=== PATIENT | female | born 1930 | race Caucasian/White ===

== ENCOUNTER 2016-07-17 20:40 | Inpatient (IN) ==
--- NOTE | 2016-07-17 20:50 | Emergency Department Report ---
Cardiac General HPI - General Stated Complaint: irregular heart beat, diff breathing Time Seen by Provider: 07/17/16 20:45 Source: patient, family Limitations: no limitations - History of Present Illness HPI narrative: Patient has had 4 days of worsening dyspnea, especially with exertion. Up to this point over the weekend the patient has refused to allow her family to call EMS or bring her to the hospital. Patient has never had anything like this before, does have coronary disease but has no stent or CABG in the past. Patient has no history of CHF or pulmonary disease. Symptoms began after the patient had taken a car trip to [place] to sell her home. Over the course of the weekend the patient initially refused medical treatment, but on their way back to [place], and her local home, patient relented and allowed her family to bring her back to the ER tonight. Occurred At: home Onset (ago): day(s) Severity: severe Prior Chest Pain/Cardiac Workup: cardiac cath Nitro Today: 0.4 mg x 2 - Related Data Home Medications Medication Instructions Recorded Confirmed Amitriptyline HCl 1 tab PO HS #30 tab 11/30/15 Aspirin [Aspir 81] 1 tab PO DAILY #30 tab 11/30/15 Calcium Carbonate [Tums] 1 tab PO CHEW PRN #0 11/30/15 Cetirizine HCl [Zyrtec] 1 cap PO HS #0 cap 11/30/15 Levothyroxine Sodium [Synthroid] 1 tab PO ACB #0 tab 11/30/15 Lysine 500 mg PO BID #0 tab 11/30/15 Melatonin 5 mg PO HS #30 tab 11/30/15 Metoprolol Succinate 50 mg PO HS #0 tab 11/30/15 Naproxen Sodium [Aleve] 220 mg PO PRN #0 cap 11/30/15 Ramipril 10 mg PO BID #0 cap 11/30/15 VITAMIN C 1 tab PO PRN #0 11/30/15 Previous Rx's Medication Instructions Recorded Acidoph/L.bulg/Bif.b/S.thermop 2 cap PO BIDWM 9 Days 12/01/15 [Bacid Caplet] Amiodarone [Pacerone] 200 mg PO DAILY 30 Days 12/01/15 Amiodarone [Pacerone] 400 mg PO TID 6 Days 12/01/15 Amoxicillin 500 mg PO BID 9 Days 12/01/15 Allergies Allergy/AdvReac Type Severity Reaction Status Date / Time fexofenadine Allergy Unknown Verified 07/17/16 21:07 loratadine Allergy Unknown Verified 07/17/16 21:07 montelukast Allergy Unknown Verified 07/17/16 21:07 pseudoephedrine Allergy Unknown Verified 07/17/16 21:07 Review of Systems All systems: reviewed and negative except as stated Cardiovascular: Reports: dyspnea on exertion (squeezing feeling in the chest) FORMERLY [facility], 1928–1983 Patient Stated Medical History Cataracts Yes Dental Problems Yes Hearing Loss Yes Cardiac Arrhythmia Yes Hypertension Yes Asthma Yes Gastroesophageal Reflux Yes Disease Hx Incontinence Yes Osteoarthritis Yes CAD Angina Hypertension Hypothyroidism Environmental allergies Surgical History: Cardiac catheter. Cholecystectomy. Hysterectomy/BSO Physical Exam - Limitations Limitations: no limitations - General General appearance: alert, other (patient appears in significant respiratory distress initially with guppy breathing. Patient placed on nasal cannula O2, and immediately had significant improvement) - Normal Exams: Head:: Normocephalic without trauma Eyes:: Pupils are PERRLA w/ EOMI, No scleral icterus, irritation, or foreign bodies noted ENMT:: No facial trauma, nasal exudates, pharyngeal erythema, or exudates are noted Neck:: Full range of motion, without adenopathy, JVD, bruits or thyromegaly Abdomen:: Bowel sounds positive, soft, non-tender, non-distended, no hepatosplenomegaly, masses or bruits noted Lymphatic:: No lymphadenopathy, or lymphedema noted Musculoskeletal:: No tenderness, or deformity noted, good range of motion, all extremities Integumentary:: No rashes, hives, or bruising noted, hair and nails, without abnormality Neurological:: Patient is alert, and oriented, cranial nerves, motor/sensory/ cerebellar, exams w/o gross deficits, to observation Psychiatric:: Patient exhibits, appropriate attention, emotion and affect - Chest Chest inspection: Present: normal inspection, symmetric chest wall rise - Respiratory Respiratory exam: Present: respiratory distress. Absent: normal lung sounds bilaterally (diminished breath sounds throughout, extended expiratory phase, minimal wheezes on end expiration only. Patient has positive inspiratory crackles in both bases), wheezes - Cardiovascular Cardiovascular exam: Absent: regular rate (irregularly irregular tachycardia initially, however on oxygen, as patient's respiratory status improved, patient' s heart rate stabilized to regular with occasional PVCs only.) Course Vital Signs Temperature 97.4 F 07/17/16 20:51 Pulse Rate 78 07/17/16 20:51 Respiratory Rate 34 H 07/17/16 20:51 Blood Pressure 172/102 H 07/17/16 20:51 Pulse Oximetry 84 L 07/17/16 20:51 Temperature 97.4 F 07/17/16 20:51 Pulse Rate 69 07/17/16 21:37 Respiratory Rate 28 H 07/17/16 21:37 Blood Pressure 148/74 H 07/17/16 21:37 Pulse Oximetry 96 07/17/16 21:37 Cardiac General - MDM Narrative Medical decision making narrative: Patient placed on 2 L nasal cannula to normalization of her hypoxemia Given nitroglycerin sublingual and 1 inch paste for hypertension and a probable urinary edema EKG shows her sinus rhythm with frequent PVCs and what appear to be premature junctional beats as well. No other signs of ischemia or infarction are seen CBC - n CMP - decreased sodium, minimal elevated liver enzymes, otherwise essentially normal D-dimer - Alcides elevation at 364 Chest x-ray -moderate diffuse interstitial infiltrates, left greater than right , with mild atelectasis After nitroglycerin and nitro paste, as well as small amount of supplemental oxygen, patient's blood pressure has normalized, her shortness of breath is significantly improved, and the patient's chest tightness is almost completely resolved. Patient discussed with Dr. Chambers - will admit to the hospital for full inpatient, for dyspnea with pulmonary edema, probable new congestive heart failure - Lab Data Result diagrams: 07/17/16 21:07 07/17/16 21:07 Lab Results 07/17/16 07/17/16 07/17/16 Range/Units 21:07 21:07 21:08 WBC 6.1 (4.5-11.0) T/MM3 RBC 4.11 (4.00-5.20) M/MM3 Hgb 11.9 L (12-16) GM/DL Hct 36.1 (36-46) % MCV 87.8 (80-100) UM3 MCH 29.0 (26-34) UUG MCHC 33.0 (31-37) GM/DL RDW Std Deviation 46.9 (36.9-50.2) FL Plt Count 347 (130-400) T/MM3 MPV 9.3 L (9.4-12.4) UM3 Immature Gran % (Auto) 0.2 (0.0-0.5) % Neut % (Auto) 64.9 (33-66) % Lymph % (Auto) 26.2 (23-45) % [place] % (Auto) 6.0 (0-9.0) % Eos % (Auto) 2.4 (0-4) % Baso % (Auto) 0.3 (0-2) % Neut # 4.0 (1.8-7.7) T/MM3 Lymph # 1.6 (1-4.8) T/MM3 [place] # 0.4 (0-0.8) T/MM3 Eos # 0.2 (0-0.5) T/MM3 Baso # 0.0 (0-0.2) T/MM3 Abs Immat Gran (auto) 0.01 (0.00-0.03) T/MM3 D-Dimer 364 H (0-230) NG/ML Turbidity < 20.0 (0-20) Sodium 129 L (134-144) MEQ/L Potassium 5.0 (3.6-5) MEQ/L Chloride 96 L (98-107) MEQ/L Carbon Dioxide 23 (22-30) MEQ/L Anion Gap 10 (5-15) MEQ/L BUN 29.0 H (7-17) MG/DL Creatinine 0.7 (0.7-1.2) MG/DL GFR Calculation 79 BUN/Creatinine Ratio 41 H (6-26) RATIO Glucose 127 H (65-110) MG/DL Calculated Osmolality 257 L (261-280) MOSM/KG Calcium 8.4 (8.4-10.2) MG/DL Total Bilirubin 0.50 (0.20-1.30) MG/DL Conjugated Bilirubin 0.00 (0.00-0.30) MG/DL Unconjugated Bilirubin 0.40 (0.00-11.10) MG/DL Icterus Index < 2.0 (0-7) AST 54 H (14-36) U/L ALT 71 H (9-52) U/L Alkaline Phosphatase 132 H (38-126) U/L Troponin I 0.023 (0-0.12) ng/ml Total Protein 6.6 (6.3-8.2) G/DL Albumin 3.9 (3.5-5.0) G/DL Globulin 2.7 (2.4-3.6) G/DL Albumin/Globulin Ratio 1.4 (1.1-2.2) RATIO Specimen Hemolysis < 15.0 (0-25) Critical Care Time Critical Care Time: Yes Total Critical Care Time: 35 Attestation: Patient required critical care for severe dyspnea, tachycardia with chest pain, and hypoxemia. Disposition Clinical Impression: Pulmonary edema, Dyspnea, Chest pain Disposition: 02 To [facility] [place] Care Condition: Improved Prescriptions: Continue Levothyroxine Sodium [Synthroid] 1 tab PO ACB #0 tab Ramipril 10 mg PO BID #0 cap Metoprolol Succinate 50 mg PO HS #0 tab Amitriptyline HCl 1 tab PO HS #30 tab Aspirin [Aspir 81] 1 tab PO DAILY #30 tab Cetirizine HCl [Zyrtec] 1 cap PO HS #0 cap Naproxen Sodium [Aleve] 220 mg PO PRN #0 cap Amoxicillin 500 mg PO BID 9 Days Amiodarone [Pacerone] 200 mg PO DAILY 30 Days Acidoph/L.bulg/Bif.b/S.thermop [Bacid Caplet] 2 cap PO BIDWM 9 Days Lysine 500 mg PO BID #0 tab Melatonin 5 mg PO HS #30 tab VITAMIN C 1 tab PO PRN #0 Calcium Carbonate [Tums] 1 tab PO CHEW PRN #0 Amiodarone [Pacerone] 400 mg PO TID 6 Days Referrals: Thom Guaman DO [Family Provider] - - Seen By: physician
[2016-07-17] MEDS ORDERED: SALINE FLUSH 10ml SYRINGE IVF PRN (20:54)
[2016-07-17] MEDS ORDERED: NITROGLYCERIN 2% OINTMENT 1gm PACKET TP ONE (20:58)
[2016-07-17] MEDS ORDERED: NITROGLYCERIN 0.4 MG SUBLINGUAL TABLET SL ONE (20:58)
[2016-07-17] MEDS ORDERED: NITROGLYCERIN 0.4 MG SUBLINGUAL TABLET SL PRN (21:53)
[2016-07-18] MEDS: FUROSEMIDE 40 MG/4 ML INJECTION IVP SCH ×4 (03:45→17:54)
[2016-07-18] MEDS: SALINE FLUSH 10ml SYRINGE IVF PRN ×2 (04:49→09:03)
--- NOTE | 2016-07-18 08:30 | XRay Report ---
Indication: dyspnea Procedure: XR chest 2V: Encounter: Initial Comparison: None Technique: PA and lateral radiographs of the chest were obtained. Findings: Lungs and airways: Low lung volumes. Left basilar atelectasis. Pulmonary vascular redistribution and indistinctness with increased interstitial markings. Pleura: Small left pleural effusion. No pneumothorax. Heart and mediastinum: Aortic atherosclerosis. Cardiomegaly. Osseous structures and soft tissues: No acute osseous abnormality is seen. Degenerative arthrosis of the shoulders. Degenerative disc disease of the thoracic spine. Impression: Cardiomegaly with vascular congestion and a small left pleural effusion. .
--- NOTE | 2016-07-18 11:16 | Cardiology History & Physical ---
History of Present Illness Chief complaint: SOA HPI: Any is a 86 year old female who is well known to Dr. Chambers's practice who has a history of CAD, paroxysmal atrial fibrillation, PVCs, non-rheumatic mitral valve insufficiency and HTN. She has had 4 days of worsening dyspnea, especially with exertion. Over the weekend the patient has refused to allow her family to call EMS or bring her to the hospital up to this point . She has never had anything like this before, does have coronary disease but has no stent or CABG in the past. She has no history of CHF or pulmonary disease. Symptoms began after she took a car trip to [place] to sell her home, on their way back to [place] she relented and allowed her family to bring her to the ED. She was admitted to Dr. Chambers for pulmonary edema and chest pain. She is examined this morning in her room on Medical. She reports frequent urination following diuretic early this morning. She states she is able to breathe easier and more deeply than she has the past week. She denies chest pain and states that is was tightness when she tried to breathe deeply. She reports chronic fatigue which she usually can recover from after rest, however the past week she has not been able to recover. She has a chronic dry unproductive cough. She denies recent illness, fever, chills, N/V/D. Denies syncope, dizziness or lightheadedness. Review of Systems - Constitutional Constitutional: Present: fatigue. Absent: chills, fever(s) - EENMT Eyes: Absent: change in vision Balance: Absent: vertigo Mouth/Throat: Absent: sore throat - Cardiovascular Cardiovascular: Present: chest pain (tightness), edema (pedal), heart murmur. Absent: syncope, dyspnea on exertion Vascular: Present: pedal edema - Respiratory Respiratory: Present: as per HPI, cough (dry, nonproductive), dyspnea, dyspnea on exertion - Gastrointestinal Gastrointestinal: Absent: diarrhea, nausea, vomiting - Genitourinary Genitourinary: Absent: dysuria - Integumentary/Breasts Integumentary: Absent: rash PFSH hypertension CAD (Cath 11/2015: EF 65%, LAD 50%, 1st Diag 30%) Thyroid disease Surgical History: Cardiac catheter. Cholecystectomy. Hysterectomy/BSO Family History: CAD- Brother, father, uncle and sister CVA- Mother [place] younger sister - Social History Smoking status: Never smoker Substance use type: does not use Alcohol intake frequency: does not drink Current occupational status: retired Medications Home Medications Medication Instructions Recorded Confirmed Type Amitriptyline HCl 1 tab PO HS #30 tab 11/30/15 07/18/16 History Cetirizine HCl [Zyrtec] 1 cap PO HS #0 cap 11/30/15 07/18/16 History Lysine 500 mg PO BID #0 tab 11/30/15 07/18/16 History Aspirin 325 mg PO DAILY 07/18/16 07/18/16 History Levothyroxine Tab [Synthroid] 112 mg PO DAILY 07/18/16 07/18/16 History Melatonin 10 mg Tablet 10 mg PO HS 07/18/16 07/18/16 History Allergies Allergy/AdvReac Type Severity Reaction Status Date / Time fexofenadine Allergy Unknown Verified 07/17/16 21:07 loratadine Allergy Unknown Verified 07/17/16 21:07 montelukast Allergy Unknown Verified 07/17/16 21:07 pseudoephedrine Allergy Unknown Verified 07/17/16 21:07 Exam Vital signs: Temp Pulse Resp BP Pulse Ox 97 F 40 L 12 142/70 H 95 07/18/16 07:05 07/18/16 07:05 07/18/16 07:05 07/18/16 07:05 07/18/16 07:05 - Constitutional no acute distress, thin, cooperative - Routine HEENT Exam ENT: Present: mucous membranes moist - Routine Neck Exam Absent: carotid bruit - Routine Respiratory Exam Present: diminished air movement (bilateral bases). Absent: wheezes - Routine Cardiovascular Exam Present: murmur (II/), irregular rhythm - Routine Abdominal Exam Present: soft, non tender - Routine Skin Exam Absent: rash - Routine Neurological Exam Present: alert, oriented X3 - Routine Psychiatric Exam Present: normal affect, normal thought process Results 07/21/16 04:37 07/21/16 04:37 Cardiac Enzymes 07/18/16 07/18/16 Range/Units 03:19 08:47 Troponin I 0.022 0.019 (0-0.12) ng/ml B-Natriuretic Peptide 8000 H (0-175) pg/mL Coagulation 07/18/16 Range/Units 03:19 B-Natriuretic Peptide 8000 H (0-175) pg/mL CBC 07/18/16 Range/Units 08:47 WBC 4.6 (4.5-11.0) T/MM3 RBC 4.03 (4.00-5.20) M/MM3 Hgb 11.6 L (12-16) GM/DL Hct 35.6 L (36-46) % Plt Count 333 (130-400) T/MM3 Comprehensive Metabolic Panel 07/18/16 Range/Units 08:47 Sodium 135 D (134-144) MEQ/L Potassium 3.8 D (3.6-5) MEQ/L Chloride 96 L (98-107) MEQ/L Carbon Dioxide 28 (22-30) MEQ/L BUN 24.0 H (7-17) MG/DL Creatinine 0.9 D (0.7-1.2) MG/DL Glucose 91 (65-110) MG/DL Calcium 8.5 (8.4-10.2) MG/DL Intake and Output 07/17/16 07/18/16 07/18/16 22:59 06:59 14:59 Intake Total 200 / 200 Output Total 300 / 300 Balance -100 / -100 Intake: Oral 200 / 200 Output: Urine 300 / 300 Other: # Voids 1 Weight 139 lb 5.314 oz Patient Weight 07/19/16 06:59 Weight 139 lb 5.314 oz - Imaging and Cardiology Echo: pending EKG results: report reviewed Imaging & Cardiology Narrative: Date of Exam: 07/17/16 Ordering Provider: Thom Toledo MD Type of Exam(s): XR chest 2V Reason for Exam(s): dyspnea Indication: dyspnea Procedure: XR chest 2V: Encounter: Initial Comparison: None Technique: PA and lateral radiographs of the chest were obtained. Findings: Lungs and airways: Low lung volumes. Left basilar atelectasis. Pulmonary vascular redistribution and indistinctness with increased interstitial markings. Pleura: Small left pleural effusion. No pneumothorax. Heart and mediastinum: Aortic atherosclerosis. Cardiomegaly. Osseous structures and soft tissues: No acute osseous abnormality is seen. Degenerative arthrosis of the shoulders. Degenerative disc disease of the thoracic spine. Impression: Cardiomegaly with vascular congestion and a small left pleural effusion. 07/18/16 12:12 EKG interpretations - Dysrhythmias Sinus rhythms and dysrhythmias: sinus rhythm Ventricular dysrhythmias: ventricular premature complexes (frequent) - Blocks, axis, hypertrophy, ST abn AV and intraventricular conduction: left bundle branch block (fixed/intermittent , complete/incomplete) Hospital Course Hospital course: 07/18/16 Last Echo 10/28 EF was 47%. Echo today EF 30%. BNP 8000. Diurese with Lasix 40mg IV Q8H and Potassium supplement 20meq TID w/ meals. Start Entresto 24mg/26mg by mouth BID Cardiomegaly with vascular congestion and a small left pleural effusion per chest xray. Cardiomyopathy: Start on Coreg 3.125mg by mouth BID. May need heart cath to determine if ischemic. MV insufficiency: NPO after midnight for LETICIA to look at Mitral valve, may need MV clipping. PVCs: Start Mexiletine [id number] po TID. Continue to monitor telemetry due to proarrhythmic effects of the medication. EKG in the morning. Recommendation After examining the patient I agree with the above assessment. I am involved in the formulation of the patient's plan of care. Assessment and Plan (1) Systolic CHF Start date: 07/17/16 Problem details: 07/18/16 Last Echo 10/28 EF was 47%. Echo today EF 30%. BNP 8000. Diurese with Lasix 40mg IV Q8H and Potassium supplement 20meq TID w/ meals. Start Entresto 24mg/26mg by mouth BID Status: Chronic Last Echo 10/28 EF was 47%. Echo today EF 30%. BNP 8000. Diurese with Lasix 40mg IV Q8H and Potassium supplement 20meq TID w/ meals. Start Entresto 24mg/26mg by mouth BID (2) Pulmonary edema Problem details: BNP 8000. Diurese with Lasix 40mg IV Q8H and Potassium supplement 20meq TID w/ meals. Status: Resolved Cardiomegaly with vascular congestion and a small left pleural effusion per chest xray. BNP 8000. Diurese with Lasix 40mg IV Q8H and Potassium supplement 20meq TID w/ meals. (3) Cardiomyopathy Problem details: Cardiomegaly with vascular congestion and a small left pleural effusion per chest xray. Cardiomyopathy: Start on Coreg 3.125mg by mouth BID. May need heart cath to determine if ischemic. Status: Chronic Start on Coreg 3.125mg by mouth BID. May need heart cath to determine if ischemic (4) Nonrheumatic mitral valve insufficiency Problem details: MV insufficiency: NPO after midnight for LETICIA to look at Mitral valve, may need MV clipping. Pt had LETICIA to assess Mitral valve - See report. Coreg increased to 6.25mg BID. Status: Chronic NPO after midnight for LETICIA to look at Mitral valve, may need MV clipping. (5) Ventricular premature depolarization Problem details: Start Mexiletine [id number] po TID. Continue to monitor telemetry due to proarrhythmic effects of the medication. EKG in the morning. Status: Acute Start Mexiletine [id number] po TID. Continue to monitor telemetry due to proarrhythmic effects of the medication. EKG in the morning. (6) Pleural effusion Status: Acute Cardiomegaly with vascular congestion and a small left pleural effusion per chest xray Diurese with Lasix 40mg IV Q8H and Potassium supplement 20meq TID w/ meals. (7) Atherosclerotic heart disease of [place] coronary artery without angina pectoris Status: Chronic (8) Paroxysmal atrial fibrillation Status: Chronic (9) Essential (primary) hypertension Status: Chronic Sepsis Assessment - Evaluation Sepsis screening result: No Definite Risk - Focused Exam Vital Signs Temp Pulse Resp BP Pulse Ox 07/18/16 07:05 97 F 40 L 12 142/70 H 95 07/18/16 02:35 70 07/17/16 23:23 97.7 F 69 16 160/92 H 96 Capillary refill: < 2-3 Seconds
[2016-07-18] MEDS: MEXILETINE 150 MG CAPSULE PO SCH ×2 (13:05→18:26)
[2016-07-18] MEDS: IPRATROPIUM/ALBUTEROL 2.5mg-0.5mg/3ml NEB AEROSOL SCH ×3 (14:08→21:06)
--- NOTE | 2016-07-18 17:36 | Echocardiogram ---
DATE OF PROCEDURE July 18, 2016 This is a two-dimensional echo with spectral Doppler, color-flow and M-mode. It was obtained in a patient with chest pain and shortness of breath. Left atrium is dilated. Left ventricular end-diastolic dimension is normal. Left ventricular wall thickness is mildly increased. LV systolic function is reduced with global hypokinesia with ejection fraction of about 30%. Right atrium is normal. Right ventricle is normal. Aortic root dimension is normal. Mitral annulus is calcified. Mitral valve leaflets are normal with moderate- to-severe mitral regurgitation. Aortic valve appears to be a trileaflet structure with no stenosis or insufficiency. Tricuspid valve shows mild tricuspid regurgitation with normal estimated pulmonary artery systolic pressure of 30. Pulmonary valve shows no pulmonary insufficiency. There is no pericardial effusion. Large pleural effusion is present. IMPRESSION 1. Global hypokinesia with ejection fraction of about 30%. 2. Pleural effusion present. 3. Mild left ventricular hypertrophy. 4. Left atrial dilation. 5. Global hypokinesia with ejection fraction of about 30%. 6. Mitral annulus calcification with [id number] mitral regurgitation. 7. Mild tricuspid regurgitation with normal estimated pulmonary artery systolic pressure of 30. 8. Aortic sclerosis. MTDD
[2016-07-18] MEDS: CARVEDILOL 3.125 MG TABLET PO SCH (18:26)
[2016-07-18] MEDS ORDERED: ACETAMINOPHEN 325 MG TABLET PO PRN (18:40)
[2016-07-18] MEDS ORDERED: MAG-AL + SIM ORAL LIQUID 30ml PO PRN (18:40)
[2016-07-18] MEDS ORDERED: DOCUSATE SODIUM 100 MG CAPSULE PO PRN (18:40)
[2016-07-18] MEDS: MELATONIN 5 MG TABLET PO SCH (22:04)
[2016-07-18] MEDS: LYSINE 500 MG TABLET PO SCH (22:04)
[2016-07-18] MEDS: SACUBITRIL/VALSARTAN 24 MG/26 MG TABLET PO SCH (22:08)
[2016-07-19] MEDS: FUROSEMIDE 40 MG/4 ML INJECTION IVP SCH ×3 (01:16→17:33)
[2016-07-19] MEDS: LEVOTHYROXINE 112 MCG TABLET PO SCH (05:44)
[2016-07-19] MEDS: IPRATROPIUM/ALBUTEROL 2.5mg-0.5mg/3ml NEB AEROSOL SCH ×4 (07:12→21:02)
[2016-07-19] MEDS: MEXILETINE 150 MG CAPSULE PO SCH ×3 (08:25→17:34)
[2016-07-19] MEDS: CARVEDILOL 3.125 MG TABLET PO SCH (08:26)
[2016-07-19] MEDS: ASPIRIN 325 MG TABLET PO SCH (09:26)
[2016-07-19] MEDS: LYSINE 500 MG TABLET PO SCH ×2 (09:27→21:03)
[2016-07-19] MEDS: CETIRIZINE 10 MG TABLET PO SCH (09:27)
[2016-07-19] MEDS: SACUBITRIL/VALSARTAN 24 MG/26 MG TABLET PO SCH ×2 (09:31→21:03)
[2016-07-19] MEDS ORDERED: SALINE FLUSH 10ml SYRINGE ONE (09:33)
[2016-07-19] MEDS ORDERED: MIDAZOLAM 2mg/2ml INJECTION IVP ONE (14:03)
[2016-07-19] MEDS ORDERED: FentaNYL 100 MCG/2 ML INJECTION IVP ONE (14:03)
[2016-07-19] MEDS: ENOXAPARIN 40 MG/0.4 ML INJECTION SQ SCH (17:33)
[2016-07-19] MEDS: CARVEDILOL 6.25 MG TABLET PO SCH (17:33)
[2016-07-19] MEDS: MELATONIN 5 MG TABLET PO SCH (21:02)
[2016-07-19] MEDS: AMITRIPTYLINE 25 MG TABLET PO SCH (21:03)
[2016-07-20] MEDS: FUROSEMIDE 40 MG/4 ML INJECTION IVP SCH ×3 (01:28→17:22)
[2016-07-20] MEDS: LEVOTHYROXINE 112 MCG TABLET PO SCH (05:40)
--- NOTE | 2016-07-20 08:41 | Transesophageal Echocardiogram ---
DATE OF PROCEDURE July 19, [address] Thom Guaman The patient is a pleasant 86-year-old lady who was admitted with congestive heart failure and echocardiogram revealed new-onset cardiomyopathy with LV dysfunction and severe mitral regurgitation and was referred for further evaluation by transesophageal echocardiogram. Informed consent was obtained after explaining the procedure and the potential risks to the patient and family who agreed to proceed with the procedure. PROCEDURE 1. Transesophageal echocardiogram. Conscious sedation was performed using Versed and fentanyl. Cetacaine spray was used for pharyngeal anesthesia. Probe was advanced into the esophagus and stomach and images were obtained in multiple planes. Left atrium is dilated. Left ventricle end-diastolic dimension is normal. Left ventricle wall thickness is normal. LV systolic function is reduced with global hypokinesia with ejection fraction of about 30%. Right atrium is normal. Right ventricle is normal. Mitral valve is morphologically normal with moderate mitral regurgitation. Aortic valve is a trileaflet structure with no stenosis or insufficiency. Tricuspid valve shows mild tricuspid regurgitation with normal morphology. Pulmonary valve appears to be normal. There is no pericardial effusion. There is no thrombus in left atrium, left atrial appendage or left ventricle. Agitated saline was injected which showed no evidence of [id number] shunt. Descending thoracic aorta appears to be free of significant atherosclerosis. IMPRESSION 1. Global hypokinesia with ejection fraction of about 30%. 2. Left atrial dilation. 3. Moderate mitral regurgitation. 4. Mild tricuspid regurgitation. MTDD
[2016-07-20] MEDS: ASPIRIN 325 MG TABLET PO SCH (09:23)
[2016-07-20] MEDS: SACUBITRIL/VALSARTAN 24 MG/26 MG TABLET PO SCH ×2 (09:24→21:17)
[2016-07-20] MEDS: CARVEDILOL 6.25 MG TABLET PO SCH ×2 (09:24→17:21)
[2016-07-20] MEDS: MEXILETINE 150 MG CAPSULE PO SCH ×3 (09:24→17:21)
[2016-07-20] MEDS: CETIRIZINE 10 MG TABLET PO SCH (09:24)
[2016-07-20] MEDS: LYSINE 500 MG TABLET PO SCH ×2 (09:24→21:16)
[2016-07-20] MEDS: ENOXAPARIN 40 MG/0.4 ML INJECTION SQ SCH (09:25)
[2016-07-20] MEDS: IPRATROPIUM/ALBUTEROL 2.5mg-0.5mg/3ml NEB AEROSOL SCH ×4 (10:17→18:42)
[2016-07-20] MEDS ORDERED: SACUBITRIL/VALSARTAN 24 MG/26 MG TABLET PO ONE (12:19)
--- NOTE | 2016-07-20 14:43 | Cardiology Progress Note ---
Subjective Principal diagnosis: Systolic heart failure <Lisandra Ni - 07/20/16 15:12> Interval history: May was seen seen in her room on medical, in no distress, laying comfortably in bed. TECHNICAL SUPPORT REPRESENTATIVE states some concerns with constipation. Pt on O2, denies any c/o SOA and/or CP. <Lisandra Ni - 07/21/16 15:19> Exam Vital signs: Temp Pulse Resp BP Pulse Ox 95.8 F L 72 18 144/66 H 94 07/21/16 16:46 07/21/16 16:46 07/21/16 16:46 07/21/16 16:46 07/21/16 16:46 <Claudio Chambers - 07/22/16 11:59> Temp Pulse Resp BP Pulse Ox 97.5 F 71 20 132/75 95 07/20/16 07:31 07/20/16 12:00 07/20/16 12:00 07/20/16 12:00 07/20/16 12:00 <Lisandra Ni - 07/20/16 15:12> - Constitutional no acute distress, cooperative <Lisandra Ni - 07/20/16 15:12> - Routine HEENT Exam ENT: Present: mucous membranes moist <Lisandra Ni - 07/20/16 15:12> - Routine Neck Exam Absent: JVD, carotid bruit, lymphadenopathy <Lisandra Ni - 07/20/16 15:12> - Routine Cardiovascular Exam Present: murmur (2/6 systolic ) <Lisandra Ni - 07/20/16 15:12> - Routine Abdominal Exam Present: soft. Absent: non tender, distended <Lisandra Ni - 07/20/16 15:12 > - Routine Neurological Exam Present: alert, oriented X3 <Lisandra Ni 07/20/16 15:12> - Routine Psychiatric Exam Present: normal affect, cooperative <Lisandra Ni 07/20/16 15:12> Hospital Course Hospital course: Recommendation After examining the patient I agree with the above assessment. I am involved in the formulation of the patient's plan of care. <Claudio Chambers - 07/22/16 11:59> 07/18/16 Last Echo 10/28 EF was 47%. Echo today EF 30%. BNP 8000. Diurese with Lasix 40mg IV Q8H and Potassium supplement 20meq TID w/ meals. Start Entresto 24mg/26mg by mouth BID Cardiomegaly with vascular congestion and a small left pleural effusion per chest xray. Cardiomyopathy: Start on Coreg 3.125mg by mouth BID. May need heart cath to determine if ischemic. MV insufficiency: NPO after midnight for LETICIA to look at Mitral valve, may need MV clipping. PVCs: Start Mexiletine [id number] po TID. Continue to monitor telemetry due to proarrhythmic effects of the medication. EKG in the morning. 07/19/2016 Pt had LETICIA to assess Mitral valve - See report. Coreg increased to 6.25mg BID. 07/20/2016 Changed IV lasix to 40mg PO daily and added spironolactone. Increased Entresto to 2tabs PO BID. BNP 1920 today. Possible d/c tomorrow. <Lisandra Ni - 07/21/16 15:19> DVT Prophylaxis: Lovenox <Lisandra Ni - 07/21/16 15:19> Progress Note-A&P (1) Systolic CHF Problem details: 07/18/16 Last Echo 10/28 EF was 47%. Echo today EF 30%. BNP 8000. Diurese with Lasix 40mg IV Q8H and Potassium supplement 20meq TID w/ meals. Start Entresto 24mg/26mg by mouth BID Status: Chronic (2) Pulmonary edema Problem details: BNP 8000. Diurese with Lasix 40mg IV Q8H and Potassium supplement 20meq TID w/ meals. Status: Resolved (3) Cardiomyopathy Problem details: Cardiomegaly with vascular congestion and a small left pleural effusion per chest xray. Cardiomyopathy: Start on Coreg 3.125mg by mouth BID. May need heart cath to determine if ischemic. Status: Chronic (4) Nonrheumatic mitral valve insufficiency Problem details: MV insufficiency: NPO after midnight for LETICIA to look at Mitral valve, may need MV clipping. Pt had LETICIA to assess Mitral valve - See report. Coreg increased to 6.25mg BID. Status: Chronic (5) Ventricular premature depolarization Problem details: Start Mexiletine [id number] po TID. Continue to monitor telemetry due to proarrhythmic effects of the medication. EKG in the morning. Status: Acute (6) Pleural effusion Status: Acute (7) Atherosclerotic heart disease of [place] coronary artery without angina pectoris Status: Chronic (8) Paroxysmal atrial fibrillation Status: Chronic (9) Essential (primary) hypertension Status: Chronic <Claudio Chambers - 07/22/16 11:59> (1) Systolic CHF Problem details: 07/18/16 Last Echo 10/28 EF was 47%. Echo today EF 30%. BNP 8000. Diurese with Lasix 40mg IV Q8H and Potassium supplement 20meq TID w/ meals. Start Entresto 24mg/26mg by mouth BID Status: Chronic (2) Pulmonary edema Problem details: BNP 8000. Diurese with Lasix 40mg IV Q8H and Potassium supplement 20meq TID w/ meals. Status: Resolved Assessment and plan: BNP 1920. Changed lasix to PO. (3) Cardiomyopathy Problem details: Cardiomegaly with vascular congestion and a small left pleural effusion per chest xray. Cardiomyopathy: Start on Coreg 3.125mg by mouth BID. May need heart cath to determine if ischemic. Status: Chronic Assessment and plan: Increased Entresto to 2 tabs BID.con't Coreg 6.25 BID. (4) Nonrheumatic mitral valve insufficiency Problem details: MV insufficiency: NPO after midnight for LETICIA to look at Mitral valve, may need MV clipping. Pt had LETICIA to assess Mitral valve - See report. Coreg increased to 6.25mg BID. Status: Chronic (5) Ventricular premature depolarization Problem details: Start Mexiletine [id number] po TID. Continue to monitor telemetry due to proarrhythmic effects of the medication. EKG in the morning. Status: Acute (6) Pleural effusion Status: Acute (7) Atherosclerotic heart disease of [place] coronary artery without angina pectoris Status: Chronic (8) Paroxysmal atrial fibrillation Status: Chronic (9) Essential (primary) hypertension Status: Chronic <Lisandra Ni - 07/21/16 15:16> - Time Spent With Patient Total time spent is greater than 50% in coordination of care (as documented) at patient's floor/unit and/or counseling patient: <Claudio Chambers - 07/22/16 11:59> Total time spent is greater than 50% in coordination of care (as documented) at patient's floor/unit and/or counseling patient: <Lisandra Ni - 07/20/16 15:12> less than 15 minutes <Lisandra Ni 07/21/16 15:19> Sepsis Assessment - Evaluation Sepsis screening result: No Definite Risk <Lisandra Ni 07/20/16 15:12> - Focused Exam Vital Signs Temp Pulse Resp BP Pulse Ox 07/20/16 12:00 71 20 132/75 95 07/20/16 11:35 20 98 07/20/16 08:00 58 L 15 95 07/20/16 07:31 97.5 F 63 20 116/66 94 07/20/16 04:49 96.8 F 59 L 16 131/66 94 <Lisandra Ni 07/20/16 15:12> Respiratory exam: Present: diminished air movement (bilateral bases). Absent: wheezes <Lisandra Ni 07/20/16 15:12> Cardiovascular exam: Present: murmur (II/), irregular rhythm <Lisandra Ni 07/20/16 15:12> Capillary refill: < 2-3 Seconds <Lisandra Ni 07/20/16 15:12>
[2016-07-20] MEDS: AMITRIPTYLINE 25 MG TABLET PO SCH (21:16)
[2016-07-20] MEDS: MELATONIN 5 MG TABLET PO SCH (21:17)
[2016-07-21] MEDS: LEVOTHYROXINE 112 MCG TABLET PO SCH (06:28)
[2016-07-21] MEDS: SALINE FLUSH 10ml SYRINGE IVF PRN (06:28)
[2016-07-21] MEDS: IPRATROPIUM/ALBUTEROL 2.5mg-0.5mg/3ml NEB AEROSOL SCH ×3 (07:59→15:28)
[2016-07-21] MEDS: SACUBITRIL/VALSARTAN 24 MG/26 MG TABLET PO SCH (08:09)
[2016-07-21] MEDS: LYSINE 500 MG TABLET PO SCH (08:10)
[2016-07-21] MEDS: CETIRIZINE 10 MG TABLET PO SCH (08:10)
[2016-07-21] MEDS: MEXILETINE 150 MG CAPSULE PO SCH ×3 (08:10→16:47)
[2016-07-21] MEDS: ENOXAPARIN 40 MG/0.4 ML INJECTION SQ SCH (08:10)
[2016-07-21] MEDS: CARVEDILOL 6.25 MG TABLET PO SCH ×2 (08:10→16:47)
[2016-07-21] MEDS: ASPIRIN 325 MG TABLET PO SCH (08:10)
[2016-07-21] MEDS ORDERED: SPIRONOLACTONE 25 MG TABLET PO SCH (09:00)
[2016-07-21] MEDS ORDERED: FUROSEMIDE 40 MG TABLET PO SCH (09:00)
--- NOTE | 2016-07-21 14:41 | Discharge Summary ---
<Lisandra Ni - Last Filed: 07/25/16 11:30> Discharge Information Date of admission: 07/17/16 22:34 Anticipated date of discharge: 07/21/16 Attending Physician: Claudio Chambers MD Primary care physician: Thom Guaman, DO - Discharge Diagnosis (1) Systolic CHF Qualifiers: Congestive heart failure chronicity: acute on chronic Qualified Code(s): I50.23 - Acute on chronic systolic (congestive) heart failure Problem Details: 07/18/16 Last Echo 10/28 EF was 47%. Echo today EF 30%. BNP 8000. Diurese with Lasix 40mg IV Q8H and Potassium supplement 20meq TID w/ meals. Start Entresto 24mg/26mg by mouth BID Status: Chronic (2) Pulmonary edema Qualifiers: Chronicity: acute Qualified Code(s): J81.0 - Acute pulmonary edema Problem Details: BNP 8000. Diurese with Lasix 40mg IV Q8H and Potassium supplement 20meq TID w/ meals. Status: Resolved (3) Cardiomyopathy Qualifiers: Cardiomyopathy type: unspecified Qualified Code(s): I42.9 - Cardiomyopathy , unspecified Problem Details: Cardiomegaly with vascular congestion and a small left pleural effusion per chest xray. Cardiomyopathy: Start on Coreg 3.125mg by mouth BID. May need heart cath to determine if ischemic. Status: Chronic (4) Nonrheumatic mitral valve insufficiency Problem Details: MV insufficiency: NPO after midnight for PALAK to look at Mitral valve, may need MV clipping. Pt had PALAK to assess Mitral valve - See report. Coreg increased to 6.25mg BID. Status: Chronic (5) Ventricular premature depolarization Problem Details: Start Mexiletine [id number] po TID. Continue to monitor telemetry due to proarrhythmic effects of the medication. EKG in the morning. Status: Acute (6) Atherosclerotic heart disease of [place] coronary artery without angina pectoris Status: Chronic (7) Paroxysmal atrial fibrillation Status: Chronic (8) Essential (primary) hypertension Status: Chronic (9) Pleural effusion Status: Acute - Laboratory Labs: 07/21/16 04:37 07/21/16 04:37 Laboratory Results - last 48 hr 07/19/16 07/19/16 07/20/16 15:10 15:10 05:15 WBC 6.1 5.7 RBC 5.15 4.64 Hgb 14.4 D 13.1 Hct 44.1 D 40.5 MCV 85.6 87.3 MCH 28.0 28.2 MCHC 32.7 32.3 RDW Std Deviation 46.9 48.1 Plt Count 386 350 MPV 9.4 9.5 Turbidity < 20 Sodium 136 Potassium 4.4 Chloride 94 L Carbon Dioxide 31 H Anion Gap 11 BUN 34.0 H Creatinine 1.1 D GFR Calculation 47 BUN/Creatinine Ratio 31 H Glucose 157 H Calculated Osmolality 273 Calcium 8.8 Magnesium 2.0 Icterus Index < 2 B-Natriuretic Peptide Specimen Hemolysis 21 07/20/16 07/20/16 07/21/16 05:15 05:15 04:37 WBC 5.7 RBC 4.50 Hgb 12.6 Hct 39.1 MCV 86.9 MCH 28.0 MCHC 32.2 RDW Std Deviation 47.1 Plt Count 396 MPV 9.5 Turbidity < 20 Sodium 134 Potassium 4.2 Chloride 96 L Carbon Dioxide 28 Anion Gap 10 BUN 35.0 H Creatinine 1.1 GFR Calculation 47 BUN/Creatinine Ratio 32 H Glucose 91 Calculated Osmolality 266 Calcium 8.4 Magnesium 2.0 Icterus Index < 2 B-Natriuretic Peptide 1920 H Specimen Hemolysis 35 H 07/21/16 04:37 WBC RBC Hgb Hct MCV MCH MCHC RDW Std Deviation Plt Count MPV Turbidity < 20 Sodium 134 Potassium 4.4 Chloride 97 L Carbon Dioxide 28 Anion Gap 9 BUN 40.0 H Creatinine 1.3 H D GFR Calculation 39 BUN/Creatinine Ratio 31 H Glucose 87 Calculated Osmolality 267 Calcium 8.6 Magnesium 2.1 Icterus Index < 2 B-Natriuretic Peptide Specimen Hemolysis < 15 - Radiology Radiology: Date of Exam: 07/17/16 Ordering Provider: Thom Toledo MD Type of Exam(s): XR chest 2V Reason for Exam(s): dyspnea Indication: dyspnea Procedure: XR chest 2V: Encounter: Initial Comparison: None Technique: PA and lateral radiographs of the chest were obtained. Findings: Lungs and airways: Low lung volumes. Left basilar atelectasis. Pulmonary vascular redistribution and indistinctness with increased interstitial markings. Pleura: Small left pleural effusion. No pneumothorax. Heart and mediastinum: Aortic atherosclerosis. Cardiomegaly. Osseous structures and soft tissues: No acute osseous abnormality is seen. Degenerative arthrosis of the shoulders. Degenerative disc disease of the thoracic spine. Impression: Cardiomegaly with vascular congestion and a small left pleural effusion. Date of Exam: 07/18/16 Type of Exam(s): US echo doppler complete DATE OF PROCEDURE July 18, 2016 This is a two-dimensional echo with spectral Doppler, color-flow and M-mode. It was obtained in a patient with chest pain and shortness of breath. Left atrium is dilated. Left ventricular end-diastolic dimension is normal. Left ventricular wall thickness is mildly increased. LV systolic function is reduced with global hypokinesia with ejection fraction of about 30%. Right atrium is normal. Right ventricle is normal. Aortic root dimension is normal. Mitral annulus is calcified. Mitral valve leaflets are normal with moderate- to-severe mitral regurgitation. Aortic valve appears to be a trileaflet structure with no stenosis or insufficiency. Tricuspid valve shows mild tricuspid regurgitation with normal estimated pulmonary artery systolic pressure of 30. Pulmonary valve shows no pulmonary insufficiency. There is no pericardial effusion. Large pleural effusion is present. IMPRESSION 1. Global hypokinesia with ejection fraction of about 30%. 2. Pleural effusion present. 3. Mild left ventricular hypertrophy. 4. Left atrial dilation. 5. Global hypokinesia with ejection fraction of about 30%. 6. Mitral annulus calcification with [id number] mitral regurgitation. 7. Mild tricuspid regurgitation with normal estimated pulmonary artery systolic pressure of 30. 8. Aortic sclerosis. Date of Exam: 07/19/16 Type of Exam(s): US palak w/ doppler DATE OF PROCEDURE July 19, [address] Thom Guaman The patient is a pleasant 86-year-old lady who was admitted with congestive heart failure and echocardiogram revealed new-onset cardiomyopathy with LV dysfunction and severe mitral regurgitation and was referred for further evaluation by transesophageal echocardiogram. Informed consent was obtained after explaining the procedure and the potential risks to the patient and family who agreed to proceed with the procedure. PROCEDURE 1. Transesophageal echocardiogram. Conscious sedation was performed using Versed and fentanyl. Cetacaine spray was used for pharyngeal anesthesia. Probe was advanced into the esophagus and stomach and images were obtained in multiple planes. Left atrium is dilated. Left ventricle end-diastolic dimension is normal. Left ventricle wall thickness is normal. LV systolic function is reduced with global hypokinesia with ejection fraction of about 30%. Right atrium is normal. Right ventricle is normal. Mitral valve is morphologically normal with moderate mitral regurgitation. Aortic valve is a trileaflet structure with no stenosis or insufficiency. Tricuspid valve shows mild tricuspid regurgitation with normal morphology. Pulmonary valve appears to be normal. There is no pericardial effusion. There is no thrombus in left atrium, left atrial appendage or left ventricle. Agitated saline was injected which showed no evidence of [id number] shunt. Descending thoracic aorta appears to be free of significant atherosclerosis. IMPRESSION 1. Global hypokinesia with ejection fraction of about 30%. 2. Left atrial dilation. 3. Moderate mitral regurgitation. 4. Mild tricuspid regurgitation. History of Present Illness HPI: Any is a 86 year old female who is well known to Dr. Chambers's practice who has a history of CAD, paroxysmal atrial fibrillation, PVCs, non-rheumatic mitral valve insufficiency and HTN. She has had 4 days of worsening dyspnea, especially with exertion. Over the weekend the patient has refused to allow her family to call EMS or bring her to the hospital up to this point . She has never had anything like this before, does have coronary disease but has no stent or CABG in the past. She has no history of CHF or pulmonary disease. Symptoms began after she took a car trip to [place] to sell her home, on their way back to [place] she relented and allowed her family to bring her to the ED. She was admitted to Dr. Chambers for pulmonary edema and chest pain. She is examined this morning in her room on Medical. She reports frequent urination following diuretic early this morning. She states she is able to breathe easier and more deeply than she has the past week. She denies chest pain and states that is was tightness when she tried to breathe deeply. She reports chronic fatigue which she usually can recover from after rest, however the past week she has not been able to recover. She has a chronic dry unproductive cough. She denies recent illness, fever, chills, N/V/D. Denies syncope, dizziness or lightheadedness. Hospital Course Hospital course: 07/18/16 Last Echo 10/28 EF was 47%. Echo today EF 30%. BNP 8000. Diurese with Lasix 40mg IV Q8H and Potassium supplement 20meq TID w/ meals. Start Entresto 24mg/26mg by mouth BID Cardiomegaly with vascular congestion and a small left pleural effusion per chest xray. Cardiomyopathy: Start on Coreg 3.125mg by mouth BID. May need heart cath to determine if ischemic. MV insufficiency: NPO after midnight for PALAK to look at Mitral valve, may need MV clipping. PVCs: Start Mexiletine [id number] po TID. Continue to monitor telemetry due to proarrhythmic effects of the medication. EKG in the morning. 07/19/2016 Pt had PALAK to assess Mitral valve - See report. Coreg increased to 6.25mg BID. 07/20/2016 Changed IV lasix to 40mg PO daily and added spironolactone. Increased Entresto to 2tabs PO BID. BNP 1920 today. Possible d/c tomorrow. DVT Prophylaxis: Lovenox Exam Vital signs: Temp Pulse Resp BP Pulse Ox 96 F L 61 17 118/69 96 07/21/16 12:00 07/21/16 12:00 07/21/16 12:00 07/21/16 12:00 07/21/16 12:00 - Constitutional no acute distress, thin, cooperative - Routine HEENT Exam ENT: Present: mucous membranes moist - Routine Neck Exam Absent: JVD, carotid bruit - Routine Chest/Breast/Axilla Exam Chest wall: Absent: tenderness - Routine Respiratory Exam Present: CTA bilaterally. Absent: rales, wheezes - Routine Cardiovascular Exam Present: RRR, murmur (II/). Absent: JVD - Routine Abdominal Exam Present: soft, normoactive bowel sounds - Routine Skin Exam Present: intact - Routine Neurological Exam Present: alert, oriented X3 - Routine Psychiatric Exam Present: normal affect, normal thought process Results 07/21/16 04:37 07/21/16 04:37 CBC 07/21/16 Range/Units 04:37 WBC 5.7 (4.5-11.0) T/MM3 RBC 4.50 (4.00-5.20) M/MM3 Hgb 12.6 (12-16) GM/DL Hct 39.1 (36-46) % Plt Count 396 (130-400) T/MM3 Comprehensive Metabolic Panel 07/21/16 Range/Units 04:37 Sodium 134 (134-144) MEQ/L Potassium 4.4 (3.6-5) MEQ/L Chloride 97 L (98-107) MEQ/L Carbon Dioxide 28 (22-30) MEQ/L BUN 40.0 H (7-17) MG/DL Creatinine 1.3 H D (0.7-1.2) MG/DL Glucose 87 (65-110) MG/DL Calcium 8.6 (8.4-10.2) MG/DL Intake and Output 07/20/16 07/21/16 07/21/16 22:59 06:59 14:59 Intake Total 460 / 460 1260 / 1260 Output Total 800 / 800 400 / 400 Balance -340 / -340 -400 / -400 1259 / 1259 Intake: Oral 460 / 460 1260 / 1260 Output: Urine 800 / 800 400 / 400 Other: # Voids 1 1 # Bowel Movements 1 Weight 123 lb 7.342 oz Patient Weight 07/22/16 06:59 Weight 123 lb 7.342 oz - Imaging and Cardiology Echo: report reviewed EKG results: image reviewed - EKG Interpretation EKG: sinus rhythm (frequent PVCs) EKG shows: bradycardia Discharge Plan - Med Rec/Dispo Referrals/Follow Up: Claudio Chambers MD [Physician] - 08/03/16 2:30 pm [facility] Instructions: Chest Pain (GEN), Pulmonary Edema (GEN) Additional Instructions: Hold Lasix, Potassium and Spironolactone for Monday and Monday. Resume all three on Monday. Have lab drawn on Monday07/26/16. New Medications: Coreg 6.25mg by mouth every morning and evening for Cardiomyopathy. Entresto 49/51mg by mouth every morning and evening and Spironolactone 25mg by mouth daily for your heart. Lasix 40mg by mouth daily with Potassium 20meq by mouth daily with food. Mexitel 150mg by mouth three times a day for your heart rhythm. Prescriptions: New Carvedilol [Coreg] 6.25 mg PO BIDWM #60 tab Mexiletine [Mexitil] 150 mg PO TIDWM #90 cap Potassium Chloride ER Tab [K-Dur] 20 meq PO WB #30 tab Sacubitril/Valsartan 24-26 [Entresto 24 mg-26 mg Tablet] 2 tab PO BID #60 tab Furosemide [Lasix] 40 mg PO DAILY #30 tab Continue Amitriptyline HCl 1 tab PO HS #30 tab Cetirizine HCl [Zyrtec] 1 cap PO HS #0 cap Levothyroxine Tab [Synthroid] 112 mg PO DAILY Lysine 500 mg PO BID #0 tab Melatonin 10 mg Tablet 10 mg PO HS Aspirin 325 mg PO DAILY - Disposition 01 Discharged Home, Self-Care <ReyesClaudio - Last Filed: 07/26/16 13:47> Discharge Information Date of admission: 07/17/16 22:34 Attending Physician: Claudio Chambers MD Primary care physician: Thom Guaman DO - Discharge Diagnosis (1) Pulmonary edema Qualifiers: Chronicity: acute Qualified Code(s): J81.0 - Acute pulmonary edema Problem Details: BNP 8000. Diurese with Lasix 40mg IV Q8H and Potassium supplement 20meq TID w/ meals. Status: Resolved (2) Ventricular premature depolarization Problem Details: Start Mexiletine [id number] po TID. Continue to monitor telemetry due to proarrhythmic effects of the medication. EKG in the morning. Status: Acute (3) Atherosclerotic heart disease of [place] coronary artery without angina pectoris Status: Chronic (4) Paroxysmal atrial fibrillation Status: Chronic (5) Nonrheumatic mitral valve insufficiency Problem Details: MV insufficiency: NPO after midnight for PALAK to look at Mitral valve, may need MV clipping. Pt had PALAK to assess Mitral valve - See report. Coreg increased to 6.25mg BID. Status: Chronic (6) Essential (primary) hypertension Status: Chronic (7) Cardiomyopathy Qualifiers: Cardiomyopathy type: unspecified Qualified Code(s): I42.9 - Cardiomyopathy , unspecified Problem Details: Cardiomegaly with vascular congestion and a small left pleural effusion per chest xray. Cardiomyopathy: Start on Coreg 3.125mg by mouth BID. May need heart cath to determine if ischemic. Status: Chronic (8) Systolic CHF Qualifiers: Congestive heart failure chronicity: acute on chronic Qualified Code(s): I50.23 - Acute on chronic systolic (congestive) heart failure Problem Details: 07/18/16 Last Echo 10/28 EF was 47%. Echo today EF 30%. BNP 8000. Diurese with Lasix 40mg IV Q8H and Potassium supplement 20meq TID w/ meals. Start Entresto 24mg/26mg by mouth BID Status: Chronic (9) Pleural effusion Status: Acute - Laboratory Labs: 07/21/16 04:37 07/21/16 04:37 Hospital Course Hospital course: Recommendation After examining the patient I agree with the above assessment. I am involved in the formulation of the patient's plan of care. Exam Vital signs: Temp Pulse Resp BP Pulse Ox 95.8 F L 72 18 144/66 H 94 07/21/16 16:46 07/21/16 16:46 07/21/16 16:46 07/21/16 16:46 07/21/16 16:46 Results 07/21/16 04:37 07/21/16 04:37
== END 2016-07-21 18:20 | disposition home or self-care (01) | DRG 292 ==
LOC: ED 20:40 → MED 22:34
PROVIDERS: ADMIT Internal Medicine Cardiovascular Disease; ATTEND Internal Medicine Cardiovascular Disease

== ENCOUNTER 2017-06-08 15:07 | Inpatient (IN) ==
[2017-06-08 16:16] VITALS: BMI 24.4
--- NOTE | 2017-06-08 16:39 | Internal Med History&Physical ---
Internal Medicine HPI Chief complaint: acute swelling in her right leg with mild shortness of breath. History of present illness: Kelvin mantilla is a very pleasant 87-year-old white female. She has a history of severe cardiomyopathy requiring a biventricular pacer defibrillator placement last year. Her daughter reported that yesterday the patient told her that she had new onset swelling in her right leg. A photograph was forwarded to me that seemed highly suspicious for DVT. We imaged her right leg today with ultrasound and indeed it did show significant clot burden in the right leg. I'm admitting her now to initiate anticoagulation therapy and make sure that she is hemodynamically stable. Additionally, we will order a CT angiogram of the chest with PE protocol due to her concomitant shortness of breath. If this is positive , I will then proceed with echocardiogram to check for right-sided heart strain. Review of Systems - Constitutional Constitutional: Present: fatigue. Absent: anorexia, chills, headache(s) - EENMT Eyes: Absent: blurry vision, loss of vision - Cardiovascular Cardiovascular: Present: dyspnea on exertion, edema. Absent: chest pain, syncope Vascular: Present: unilateral swelling. Absent: intermittent claudication - Respiratory Respiratory: Present: dyspnea on exertion. Absent: cough - Gastrointestinal Gastrointestinal: Absent: abdominal pain, change in bowel habits, dyspepsia, dysphagia - Musculoskeletal Musculoskeletal: Absent: abnormal gait, joint swelling - Integumentary/Breasts Integumentary: Absent: alopecia - Neurological Neurological: Absent: abnormal gait, abnormal movements Neurological Comments: Mild dementia - Psychiatric Psychiatric: Present: mood swings. Absent: anxiety, depression - Endocrine Endocrine: Absent: cold intolerance, excessive sweating, flushing, palpitations - Hematologic/Lymphatic Hematologic/Lymphatic: Absent: easy bleeding, easy bruising, lymphadenopathy - Allergic/Immunologic Allergic/Immunologic: Absent: itchy eyes, urticaria, lip swelling PFSH Patient Stated Medical History Dementia Yes Cataracts Yes: bilat. cataract removed Dental Problems Yes Hearing Loss Yes: right ear/ left ear limited hearing Angina Yes Cardiac Arrhythmia Yes Congestive Heart Failure Yes Coronary Artery Disease Yes Hypertension Yes Asthma Yes Gastroesophageal Reflux Yes Disease Other GI Yes: EXCESSIVE GAS Hx Incontinence Yes Osteoarthritis Yes Depression Yes Other Behavioral Health [place]AN[place]IA Fibroids Yes Other Reproductive Yes Surgical History: Cardiac catheter. Cholecystectomy. Hysterectomy/BSO. Placement of a Bi-V ICD - Social History Smoking status: Never smoker Substance use type: does not use Alcohol intake frequency: does not drink Housing: house Current occupational status: retired Does patient use chewing tobacco?: No Medications Home Medications Medication Instructions Recorded Confirmed Type Amitriptyline HCl 1 tab PO HS #30 tab 11/30/15 06/08/17 History Cetirizine HCl [Zyrtec] 1 cap PO HS #0 cap 11/30/15 06/08/17 History Lysine 500 mg PO BID #0 tab 11/30/15 06/08/17 History Aspirin 325 mg PO DAILY 07/18/16 06/08/17 History Levothyroxine Tab [Synthroid] 112 mg PO HS 07/18/16 06/08/17 History Melatonin 10 mg Tablet 10 mg PO HS 07/18/16 06/08/17 History Furosemide [Lasix 40 mg Tab] 40 mg PO DAILY #30 tab 07/21/16 06/08/17 Rx Mexiletine [Mexitil] 150 mg PO TIDWM #90 cap 07/21/16 06/08/17 Rx Acetaminophen [Tylenol] 500 mg PO DAILY PRN 11/01/16 06/08/17 History Carvedilol [Coreg] 3.125 mg PO BIDWM 11/01/16 06/08/17 History Naproxen Sodium [Aleve] 220 mg PO DAILY PRN 11/01/16 06/08/17 History Potassium Chloride [K-DUR 20 mEq 20 meq PO DAILY 11/01/16 06/08/17 History Tablet] CALCIUM CARBONATE Chewable [Tums 1 - 2 tab PO PRN PRN 06/08/17 06/08/17 History Extra Strength] Lactobacillus Acidophilus 1 each PO DAILY PRN 06/08/17 06/08/17 History [Probiotic] Lidocaine HCl [Aspercreme] 1 applicatio PO PRN PRN 06/08/17 06/08/17 History SACUBITRIL/VALSARTAN 49/51mg 1 tab PO BID 06/08/17 06/08/17 History [ENTRESTO 49/51mg] Simethicone [Gas-X] 125 - 250 mg PO PRN PRN 06/08/17 06/08/17 History Systane Eye Drops 1 drop EACH EYE TID PRN 06/08/17 06/08/17 History raNITIdine HCl [Zantac] 150 mg PO BID 06/08/17 06/08/17 History Allergies Allergy/AdvReac Type Severity Reaction Status Date / Time fexofenadine Allergy Unknown Verified 11/01/16 16:47 loratadine Allergy Unknown Verified 11/01/16 16:47 montelukast Allergy Unknown Verified 11/01/16 16:47 pseudoephedrine Allergy Unknown Verified 11/01/16 16:47 Exam Vital signs: Temperature 97.8 F 06/08/17 16:15 Pulse Rate 70 06/08/17 16:15 Respiratory Rate 18 06/08/17 16:15 Blood Pressure 146/67 H 06/08/17 16:15 - Constitutional mild distress, cooperative - Routine HEENT Exam Head: Present: normocephalic, atraumatic Eye: Present: EOMI, PERRL. Absent: conjunctival icterus ENT: Present: mucous membranes moist Nose: moist mucous membranes Throat: normal inspection - Routine Neck Exam Present: supple, full ROM. Absent: JVD, carotid bruit - Routine Chest/Breast/Axilla Exam Chest wall: Absent: tenderness Axillae: Absent: lymphadenopathy - Routine Respiratory Exam Present: CTA bilaterally. Absent: accessory muscle use - Routine Cardiovascular Exam Present: RRR, no murmur - Routine Abdominal Exam Present: soft, normoactive bowel sounds, non distended, non tender - Routine Extremities Exam Present: edema (right leg all the way up to the thigh) - Routine Skin Exam Present: intact. Absent: cyanosis, erythema, dry, pallor, mottling, petechiae, urticaria, jaundice - Routine Neurological Exam Present: alert, oriented X3, CN II-XII intact, normal speech (pressured) - Routine Psychiatric Exam Present: cooperative, anxious. Absent: good judgment Internal Medicine Results - Imaging and Cardiology Venous US Additional comments: Right lower extremity venous Doppler demonstrated DVT with large clot burden. Assessment and Plan - Assessment and Plan (1) Deep vein thrombosis (DVT) of right lower extremity Current visit: Yes Status: Acute (2) Dyspnea Current visit: No Status: Acute (3) Atherosclerotic heart disease of [place] coronary artery without angina pectoris Current visit: No Status: Chronic (4) Paroxysmal atrial fibrillation Current visit: No Status: Chronic (5) Essential (primary) hypertension Current visit: No Status: Chronic (6) Cardiomyopathy Problem details: Cardiomegaly with vascular congestion and a small left pleural effusion per chest xray. Cardiomyopathy: Start on Coreg 3.125mg by mouth BID. May need heart cath to determine if ischemic. Current visit: No Status: Chronic (7) Systolic CHF Problem details: 07/18/16 Last Echo 10/28 EF was 47%. Echo today EF 30%. BNP 8000. Diurese with Lasix 40mg IV Q8H and Potassium supplement 20meq TID w/ meals. Start Entresto 24mg/26mg by mouth BID Current visit: No Status: Chronic
[2017-06-08] MEDS ORDERED: IOHEXOL 350mg/ml 75ml INJECTION ONE (17:45)
[2017-06-08] MEDS ORDERED: SALINE FLUSH 10ml SYRINGE ONE (17:45)
[2017-06-08] MEDS: RIVAROXABAN 15 MG TABLET PO SCH (18:49)
--- NOTE | 2017-06-09 08:14 | CT Scan Report ---
Indication: DVT, SOB PROCEDURE: CT angio pulm emboli: Encounter: Initial Comparison: None Technique: Axial CT pulmonary angiographic phase images were performed through the chest after the administration of intravenous contrast. Coronal and Sagittal MIP reconstructed images were created and reviewed. Automated Exposure Control and Iterative Reconstruction dose reducing techniques were utilized. Contrast: Omnipaque 350 65 mL Findings: Pulmonary arteries: Exam is diagnostic to the subsegmental pulmonary arterial level. There are areas of segmental and subsegmental embolus in the right middle and both lower lobes. Other findings: Mild dependent atelectasis with scattered calcified granulomas. No lobar consolidative pneumonia, pleural effusion or pneumothorax. Patulous esophagus. Central airways are patent. Cardiomegaly without pericardial effusion. Left pacemaker defibrillator. The upper abdomen shows granulomatous disease in the liver and spleen. Impression: Bilateral pulmonary emboli. There is a preliminary report by [facility]. .
[2017-06-09] MEDS: RIVAROXABAN 15 MG TABLET PO SCH ×2 (10:04→17:48)
[2017-06-09] MEDS ORDERED: NAPROXEN 220 MG TABLET PO PRN (14:00)
[2017-06-09] MEDS ORDERED: CALCIUM CARBONATE Chewable 750mg TABLET PO PRN (14:00)
[2017-06-09] MEDS ORDERED: LACTOBACILLUS (15B cfu) CAPSULE PO PRN (14:00)
[2017-06-09] MEDS ORDERED: SIMETHICONE 125 MG CAPSULE PO PRN (14:00)
[2017-06-09] MEDS ORDERED: ACETAMINOPHEN 500 MG TABLET PO PRN (14:00)
[2017-06-09] MEDS ORDERED: SYSTANE EYE DROPS 0.7ml EACH EYE PRN (14:00)
--- NOTE | 2017-06-09 15:22 | Internal Med Progress Note ---
Internal Medicine Subjective Patient was seen and examined in her room. Family is at the bedside. Questions answered. Nursing reported the patient was able to get up earlier today and walk with them in the hallway. She did use a walker and oxygen. CT angiogram demonstrated pulmonary emboli in both lower lobes as well as the right middle lobe of her lungs. She still has significant swelling in that right leg. She is on O2 at 2 L per nasal cannula and denies dyspnea at this time. She further denies chest pain or cough. Exam Vital Signs: Temperature 97.5 F 06/09/17 07:33 Pulse Rate 76 06/09/17 08:00 Respiratory Rate 14 06/09/17 07:33 Blood Pressure 154/76 H 06/09/17 07:33 Pulse Oximetry 100 06/09/17 07:33 Telemetry Rhythm: Sinus Rhythm Height/Weight/BMI: Height 5 ft Weight 58.4 kg Body Mass Index 24.4 - Constitutional Present: no acute distress - Routine HEENT Exam Head: Present: normocephalic, abrasion, hematoma. Absent: atraumatic Eye: Present: EOMI, PERRL, normal accommodation, conjunctivae pink. Absent: scleral injection ENT: Present: mucous membranes moist - Routine Neck Exam Present: supple. Absent: lymphadenopathy, thyromegaly - Routine Chest/Breast/Axilla Exam Chest wall: Absent: tenderness Axillae: Absent: lymphadenopathy - Routine Respiratory Exam Present: CTA bilaterally. Absent: accessory muscle use, rales, respiratory distress, rhonchi, wheezes - Routine Cardiovascular Exam Present: RRR. Absent: S3, S4 - Routine Abdominal Exam Present: soft, normoactive bowel sounds, non distended, non tender - Routine Extremities Exam Present: edema, calf tenderness. Absent: cyanosis, pallor - Routine Back/Spine/Pelvis Exam Back/Spine: Absent: CVA tenderness, vertebral tenderness - Routine Skin Exam Present: ecchymosis. Absent: pallor, mottling, petechiae, urticaria, jaundice - Routine Neurological Exam Present: alert, oriented X3, moving all extremities - Routine Psychiatric Exam Present: normal affect, cooperative, anxious Internal Medicine Results - Labs CBC & Chem 7: 06/09/17 05:18 06/09/17 05:18 Labs: Short CBC 06/08/17 06/09/17 Range/Units 17:10 05:18 WBC 6.4 5.3 (4.5-11.0) T/MM3 Hgb 12.7 12.2 (12-16) GM/DL Hct 37.8 36.4 (36-46) % Plt Count 295 304 (130-400) T/MM3 BMP 06/08/17 06/09/17 17:10 05:18 Sodium 134 136 Potassium 5.0 4.4 Chloride 99 101 Carbon Dioxide 25 28 BUN 42.0 H 36.0 H Creatinine 1.1 1.0 Glucose 100 92 Calcium 8.7 8.5 Liver Function 06/08/17 06/09/17 Range/Units 17:10 05:18 Total Bilirubin 0.30 0.20 (0.20-1.30) MG/DL AST 41 H 32 (14-36) U/L ALT 25 22 (1-35) U/L Alkaline Phosphatase 233 H 204 H (38-126) U/L Albumin 3.4 L 2.9 L (3.5-5.0) g/dL - Imaging and Cardiology CT scan - chest Additional comments: Pulmonary emboli bilateral lower lobes and right middle lobe Progress Note-A&P - Time Spent With Patient Total time spent is greater than 50% in coordination of care (as documented) at patient's floor/unit and/or counseling patient: 25 - 35 minutes (1) Deep vein thrombosis (DVT) of right lower extremity Status: Acute Current Visit: Yes (2) Dyspnea Status: Acute Current Visit: No (3) Atherosclerotic heart disease of [place] coronary artery without angina pectoris Status: Chronic Current Visit: No (4) Paroxysmal atrial fibrillation Status: Chronic Current Visit: No (5) Essential (primary) hypertension Status: Chronic Current Visit: No (6) Cardiomyopathy Problem details: Cardiomegaly with vascular congestion and a small left pleural effusion per chest xray. Cardiomyopathy: Start on Coreg 3.125mg by mouth BID. May need heart cath to determine if ischemic. Status: Chronic Current Visit: No (7) Systolic CHF Problem details: 07/18/16 Last Echo 10/28 EF was 47%. Echo today EF 30%. BNP 8000. Diurese with Lasix 40mg IV Q8H and Potassium supplement 20meq TID w/ meals. Start Entresto 24mg/26mg by mouth BID Status: Chronic Current Visit: No - Assessment and Plan CT angiogram and right lower extremity ultrasound were reviewed. I will order echocardiogram to look for any evidence of right heart strain. She will need to be on anticoagulation therapy for at least 3 months. I've chosen Xarelto due to simplicity of dosing. She will need to be on twice daily dosing for 21 days then daily thereafter. If her echocardiogram does not show right heart strain and she is stable, and possible she could go home this weekend. Hospital Course Summary Disclaimer: The visit summary below is not to be considered part of the above Progress Note.
[2017-06-09] MEDS: MEXILETINE 150 MG PO SCH (17:48)
[2017-06-09] MEDS: CARVEDILOL 3.125 MG PO SCH (17:49)
[2017-06-09] MEDS: SALINE FLUSH 10ml SYRINGE IV PRN (17:51)
[2017-06-09] MEDS: MELATONIN 5 MG PO SCH (22:07)
[2017-06-09] MEDS: LYSINE 500 MG TABLET PO SCH (22:09)
[2017-06-09] MEDS: LEVOTHYROXINE 112 MCG PO SCH (22:10)
[2017-06-09] MEDS: AMITRIPTYLINE HCL 75 MG PO SCH (22:10)
[2017-06-09] MEDS: CETIRIZINE 10 MG PO SCH (22:11)
[2017-06-09] MEDS: POM SACUBITRIL/VALSARTAN 49/51mg TABLET PO SCH (22:12)
[2017-06-09] MEDS: POM RANITIDINE 150 MG TABLET PO SCH (22:13)
[2017-06-10] MEDS ORDERED: ASPIRIN 325 MG TABLET PO SCH (09:00)
[2017-06-10] MEDS: POM FUROSEMIDE 40 MG TABLET PO SCH (09:23)
[2017-06-10] MEDS: POM RANITIDINE 150 MG TABLET PO SCH ×2 (09:25→20:37)
[2017-06-10] MEDS: POM SACUBITRIL/VALSARTAN 49/51mg TABLET PO SCH ×2 (09:25→20:39)
[2017-06-10] MEDS: LYSINE 500 MG TABLET PO SCH ×2 (09:25→20:35)
[2017-06-10] MEDS: MEXILETINE 150 MG PO SCH ×3 (09:25→17:39)
[2017-06-10] MEDS: CARVEDILOL 3.125 MG PO SCH ×2 (09:26→17:39)
[2017-06-10] MEDS: RIVAROXABAN 15 MG TABLET PO SCH ×2 (09:28→17:39)
[2017-06-10] MEDS: SALINE FLUSH 10ml SYRINGE IV PRN (09:29)
--- NOTE | 2017-06-10 11:51 | Internal Med Progress Note ---
Internal Medicine Subjective Patient was seen and examined in her room. I discussed the results of her echocardiogram with Dr. Chambers. She had an ejection fraction of 35% and a PA pressure of 40 indicating mild pulmonary hypertension. May was able to walk in the pool with the nursing staff yesterday while wearing oxygen. She did indicate pain in that right leg consistent with the DVT. She denies cough or chest pain at this time. Exam Vital Signs: Temperature 96.9 F 06/10/17 08:00 Pulse Rate 76 06/10/17 08:00 Respiratory Rate 18 06/09/17 23:33 Blood Pressure 147/65 H 06/10/17 08:00 Pulse Oximetry 98 06/10/17 08:00 Paced: 100% Height/Weight/BMI: Height 5 ft Weight 85.6 kg Body Mass Index 24.4 - Constitutional Present: no acute distress, cooperative - Routine HEENT Exam Head: Present: normocephalic. Absent: atraumatic (she has ecchymoses to her forehead secondary to her recent fall) Eye: Present: EOMI, PERRL, conjunctivae pink. Absent: conjunctival icterus, scleral injection ENT: Present: mucous membranes moist, oropharynx clear - Routine Neck Exam Present: supple. Absent: JVD, lymphadenopathy - Routine Chest/Breast/Axilla Exam Chest wall: Absent: tenderness Axillae: Absent: lymphadenopathy - Routine Respiratory Exam Present: CTA bilaterally. Absent: accessory muscle use, rales, rhonchi, wheezes - Routine Cardiovascular Exam Present: RRR. Absent: S3, S4 - Routine Abdominal Exam Present: soft, normoactive bowel sounds, non distended, non tender - Routine Extremities Exam Present: edema (right leg consistent with DVT. The swelling seems slightly less) , Mahad's sign, tenderness - Routine Skin Exam Present: intact. Absent: pallor, mottling, petechiae, warm, jaundice - Routine Neurological Exam Present: alert, oriented X3, CN II-XII intact - Routine Psychiatric Exam Present: normal affect, normal thought process, cooperative, good insight, good judgment Internal Medicine Results - Labs CBC & Chem 7: 06/09/17 05:18 06/09/17 05:18 Progress Note-A&P - Time Spent With Patient Total time spent is greater than 50% in coordination of care (as documented) at patient's floor/unit and/or counseling patient: 25 - 35 minutes (1) Deep vein thrombosis (DVT) of right lower extremity Status: Acute Current Visit: Yes (2) Dyspnea Status: Acute Current Visit: No (3) Atherosclerotic heart disease of [place] coronary artery without angina pectoris Status: Chronic Current Visit: No (4) Paroxysmal atrial fibrillation Status: Chronic Current Visit: No (5) Essential (primary) hypertension Status: Chronic Current Visit: No (6) Cardiomyopathy Problem details: Cardiomegaly with vascular congestion and a small left pleural effusion per chest xray. Cardiomyopathy: Start on Coreg 3.125mg by mouth BID. May need heart cath to determine if ischemic. Status: Chronic Current Visit: No (7) Systolic CHF Problem details: 07/18/16 Last Echo 10/28 EF was 47%. Echo today EF 30%. BNP 8000. Diurese with Lasix 40mg IV Q8H and Potassium supplement 20meq TID w/ meals. Start Entresto 24mg/26mg by mouth BID Status: Chronic Current Visit: No (8) Pulmonary hypertension Status: Acute Current Visit: Yes - Assessment and Plan May seems to be progressing nicely. She does have an extensive DVT in her right lower extremity with bilateral pulmonary embolism in both lower lobes and the right middle lobe. Additionally, she has pulmonary hypertension by echocardiogram and systolic failure with an ejection fraction of 35%. She does have a ventricular pacemaker and has been on Entresto. She appears to be tolerating these were also well in my plan at this point is to consider discharge home tomorrow with a prescription for Xarelto twice daily for the remainder of 21 days and then 20 mg daily thereafter for at least 3 months. I do have considerable concern about her risk of falling while on anticoagulation therapy however this is absolutely necessary with her recent development of DVT and pulmonary embolism. Hospital Course Summary Disclaimer: The visit summary below is not to be considered part of the above Progress Note.
--- NOTE | 2017-06-10 12:19 | Echocardiogram ---
DATE OF PROCEDURE June 09, [address] Thom Guaman This is a two-dimensional echo with spectral Doppler, color-flow and M-mode. It was obtained in a patient with a pulmonary embolism. Left atrial dimension is normal. Left ventricular end-diastolic dimension is normal. Left ventricle wall thickness is normal. Global hypokinesia is present with ejection fraction of about 35%. Right atrium is normal. Right ventricle is normal. Aortic root dimension is normal. Mitral valve annulus is calcified. Mitral valve leaflets are normal with mild mitral regurgitation. Aortic valve is a trileaflet structure with fibrocalcific changes with no stenosis or insufficiency. Tricuspid valve shows mild tricuspid regurgitation with mild pulmonary hypertension with estimated pulmonary artery systolic pressure of 40. Pulmonary valve shows trace of pulmonary insufficiency. There is no pericardial effusion. IMPRESSION 1. Global hypokinesia with ejection fraction of about 35%. 2. Permanent pacemaker is present in the right heart. 3. Mitral annulus calcification with mild mitral regurgitation. 4. Aortic sclerosis. 5. Mild tricuspid regurgitation with mild pulmonary hypertension with estimated pulmonary artery systolic pressure of 40. 6. Trace of pulmonary insufficiency. MTDD
[2017-06-10] MEDS: MELATONIN 5 MG PO SCH (20:35)
[2017-06-10] MEDS: AMITRIPTYLINE HCL 75 MG PO SCH (20:36)
[2017-06-10] MEDS: CETIRIZINE 10 MG PO SCH (20:36)
[2017-06-10] MEDS: LEVOTHYROXINE 112 MCG PO SCH (20:37)
[2017-06-11] MEDS: POM FUROSEMIDE 40 MG TABLET PO SCH (08:17)
[2017-06-11] MEDS: CARVEDILOL 3.125 MG PO SCH ×2 (08:17→17:02)
[2017-06-11] MEDS: RIVAROXABAN 15 MG TABLET PO SCH ×2 (08:17→17:02)
[2017-06-11] MEDS: MEXILETINE 150 MG PO SCH ×3 (08:17→17:02)
[2017-06-11] MEDS: LYSINE 500 MG TABLET PO SCH (08:17)
[2017-06-11] MEDS: POM SACUBITRIL/VALSARTAN 49/51mg TABLET PO SCH (08:18)
[2017-06-11] MEDS: POM RANITIDINE 150 MG TABLET PO SCH (08:18)
[2017-06-11] MEDS: SALINE FLUSH 10ml SYRINGE IV PRN (09:44)
[2017-06-11 15:28] VITALS: BP 150/69; PULSE 68; RESP 16; TEMP 96.2; O2SAT 99
--- NOTE | 2017-06-11 17:00 | Discharge Summary ---
Discharge Information Date of admission: 06/09/17 16:09 Attending Physician: Thom Guaman DO Primary care physician: Thom Guaman DO - Discharge Diagnosis (1) Deep vein thrombosis (DVT) of right lower extremity Status: Acute (2) Pulmonary embolism Status: Acute (3) Dyspnea Status: Acute (4) Atherosclerotic heart disease of [place] coronary artery without angina pectoris Status: Chronic (5) Paroxysmal atrial fibrillation Status: Chronic (6) Essential (primary) hypertension Status: Chronic (7) Cardiomyopathy Status: Chronic (8) Systolic CHF Status: Chronic (9) Pulmonary hypertension Status: Acute - Laboratory Labs: 06/09/17 05:18 06/09/17 05:18 History of Present Illness HPI: Kelvin mantilla is a very pleasant 87-year-old white female. She has a history of severe cardiomyopathy requiring a biventricular pacer defibrillator placement last year. Her daughter reported that yesterday the patient told her that she had new onset swelling in her right leg. A photograph was forwarded to me that seemed highly suspicious for DVT. We imaged her right leg today with ultrasound and indeed it did show significant clot burden in the right leg. I'm admitting her now to initiate anticoagulation therapy and make sure that she is hemodynamically stable. Additionally, we will order a CT angiogram of the chest with PE protocol due to her concomitant shortness of breath. If this is positive , I will then proceed with echocardiogram to check for right-sided heart strain. Hospital Course This is a general summary of the patient's hospital course. For more details refer to the complete medical record. Time spent with patient: 25 - 35 minutes Resuscitation Status: Do Not Resuscitate Discharge Plan - Med Rec/Dispo Referrals/Follow Up: Thom Guaman DO [Primary Care Provider] - 1 Week Prescriptions: New Rivaroxaban [Xarelto] 15 mg PO BIDWM tab Continue Amitriptyline HCl 1 tab PO HS #30 tab Cetirizine HCl [Zyrtec] 1 cap PO HS #0 cap Levothyroxine Tab [Synthroid] 112 mg PO HS Mexiletine [Mexitil] 150 mg PO TIDWM #90 cap Naproxen Sodium [Aleve] 220 mg PO DAILY PRN PRN Reason: Pain Potassium Chloride [K-DUR 20 mEq Tablet] 20 meq PO DAILY Carvedilol [Coreg] 3.125 mg PO BIDWM CALCIUM CARBONATE Chewable [Tums Extra Strength] 1 - 2 tab PO PRN PRN PRN Reason: Indigestion Systane Eye Drops 1 drop EACH EYE TID PRN PRN Reason: Dry Eyes SACUBITRIL/VALSARTAN 49/51mg [ENTRESTO 49/51mg] 1 tab PO BID raNITIdine HCl [Zantac] 150 mg PO BID Lidocaine HCl [Aspercreme] 1 applicatio PO PRN PRN PRN Reason: Discomfort Lysine 500 mg PO BID #0 tab Melatonin 10 mg Tablet 10 mg PO HS Aspirin 325 mg PO DAILY Furosemide [Lasix 40 mg Tab] 40 mg PO DAILY #30 tab Acetaminophen [Tylenol] 500 mg PO DAILY PRN PRN Reason: Pain Lactobacillus Acidophilus [Probiotic] 1 each PO DAILY PRN PRN Reason: if on antibiotic Simethicone [Gas-X] 125 - 250 mg PO PRN PRN PRN Reason: Gas - Disposition 01 Discharged Home, Self-Care - Dismissal Complete Discharge Instructions are:: Complete
[2017-06-30] MEDS ORDERED: RIVAROXABAN 20 MG TABLET PO SCH (17:30)
== END 2017-06-11 18:37 | disposition home or self-care (01) | DRG 299 ==
LOC: MED
PROVIDERS: ADMIT Internal Medicine; ATTEND Internal Medicine